=== PATIENT | male | born 2000 | race Two or more races ===

== ENCOUNTER 2019-01-30 21:11 | Emergency (ER) | payer SELFPAY ==
[~2019-01-30] VITALS: Ht 172.7 cm; Wt 101.6 kg
[2019-01-30 21:15] VITALS: Ht 172.7 cm; Wt 101.6 kg
[2019-01-30 23:09] LABS: AMPHETAMINE QUAL UR NONE DETECTED (See below)
[2019-01-31 00:45] VITALS: BP 128/83
[2019-01-31 00:47] LABS: CALCIUM 8.9 mg/dL (8.5-10.1); CARBON DIOXIDE 27.2 mmol/L (21-32); CHLORIDE SERUM 104 mmol/L (98-107); GFR1 > 60 mL/min; GLUCOSE SERUM 86 mg/dL (74-106); POTASSIUM SERUM 4.1 mmol/L (3.5-5.1); SODIUM SERUM 141 mmol/L (136-145)
== END 2019-01-31 01:03 | disposition home or self-care (01) ==
LOC: ED 21:11
PROVIDERS: Emergency Medicine
DX: R07.2 Precordial pain (principal); R51 Headache
CPT/HCPCS: 85378; Q0092